=== PATIENT | female | born 1985 | race Caucasian/White ===

== ENCOUNTER 2017-02-28 12:52 | Emergency (ER) | payer OTHER, MEDICAID ==
[2017-02-28] MEDS ORDERED: DEXAMETHASONE SOD PHOS INJ 10 MG/1 ML VIAL IM ONE (14:08)
[2017-02-28] MEDS ORDERED: KETOROLAC TROMETHAMINE 60 MG/2 ML SDV IM ONE (14:08)
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
[2017-02-28 16:27] VITALS: BP 115/79
== END 2017-02-28 15:55 | disposition home or self-care (01) ==
LOC: ER 12:52
DX: S16.1XXA Strain of muscle, fascia and tendon at neck level, initial encounter (principal); M54.6 Pain in thoracic spine; M79.1 Myalgia; Z87.891 Personal history of nicotine dependence; Z85.41 Personal history of malignant neoplasm of cervix uteri; Z86.14 Personal history of Methicillin resistant Staphylococcus aureus infection; Z90.710 Acquired absence of both cervix and uterus; Z90.49 Acquired absence of other specified parts of digestive tract; Z88.0 Allergy status to penicillin; Z88.6 Allergy status to analgesic agent; V89.2XXA Person injured in unspecified motor-vehicle accident, traffic, initial encounter; Y92.481 Parking lot as the place of occurrence of the external cause
CPT/HCPCS: 99284; 96372; 72050; 72070; J1885; J1100

== ENCOUNTER 2017-06-23 10:46 | Emergency (ER) | payer MEDICAID ==
[2017-06-23 11:02] VITALS: BP 129/70
--- NOTE | 2017-06-23 22:19 | EKG REPORT ---
SEVERITY:- NORMAL ECG - SINUS RHYTHM : Confirmed by: Levy Major 23-Jun-2017 22:19:18
== END 2017-06-23 11:54 | disposition left against medical advice (07) ==
LOC: ER 10:46
DX: Z53.21 Procedure and treatment not carried out due to patient leaving prior to being seen by health care provider (principal); R07.9 Chest pain, unspecified
CPT/HCPCS: 93005; 93010

== ENCOUNTER → 2017-10-03 | Outpatient (CLI) | payer MEDICAID ==
--- NOTE | 2017-10-03 15:51 | RADIOLOGY REPORT (SQ) ---
EXAM DESCRIPTION: FOOT LEFT 2 VIEWS COMPLETED DATE/TIME: 10/03/2017 2:52 pm REASON FOR STUDY: PLANTAR FASCIAL FIBROMATOSIS M72.2 PLANTAR FASCIAL FIBROMATOSIS COMPARISON: 04/09/2011 NUMBER OF VIEWS: Three views. TECHNIQUE: AP, lateral and oblique without weight bearing radiographic images acquired of the left f oot. LIMITATIONS: None. FINDINGS: MINERALIZATION: Normal. BONES: No acute fracture or dislocation. No worrisome bone lesions. No significant osteophytes. JOINTS: No erosions. No gila-articular osteopenia. No chondrocalcinosis. SOFT TISSUES: No swelling. No calcifications. OTHER: No other significant finding. IMPRESSION: NEGATIVE STUDY OF THE LEFT FOOT. NO EXPLANATION FOR PAIN. TECHNICAL DOCUMENTATION: JOB ID: [id number] [employer]- All Rights Reserved Reading location - IP/workstation name: [email or web address]
== END ==
LOC: OD 14:36
PROVIDERS: ATTEND Family Medicine
DX: M72.2 Plantar fascial fibromatosis (principal)

== ENCOUNTER 2019-09-03 19:53 | Emergency (ER) | payer OTHER, MEDICAID ==
[2019-09-03] MEDS ORDERED: IBUPROFEN 800 MG TABLET PO ONE (20:02)
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
[2019-09-03 21:08] VITALS: BP 144/87
== END 2019-09-03 21:11 | disposition home or self-care (01) ==
LOC: ER 19:53
DX: S49.91XA Unspecified injury of right shoulder and upper arm, initial encounter (principal); M79.89 Other specified soft tissue disorders; V43.52XA Car driver injured in collision with other type car in traffic accident, initial encounter; Y92.481 Parking lot as the place of occurrence of the external cause; Z88.0 Allergy status to penicillin; Z88.6 Allergy status to analgesic agent; Z86.14 Personal history of Methicillin resistant Staphylococcus aureus infection
CPT/HCPCS: 99283

== ENCOUNTER 2019-09-04 14:58 | Emergency (ER) | payer OTHER, MEDICAID ==
[2019-09-04 15:41] VITALS: BP 146/100
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
== END 2019-09-04 15:41 | disposition home or self-care (01) ==
LOC: ER 14:58
DX: H11.30 Conjunctival hemorrhage, unspecified eye (principal); R51 Headache; M54.2 Cervicalgia; V87.7XXA Person injured in collision between other specified motor vehicles (traffic), initial encounter; Z88.0 Allergy status to penicillin; Z88.8 Allergy status to other drugs, medicaments and biological substances; Z79.899 Other long term (current) drug therapy
CPT/HCPCS: 99283

== ENCOUNTER → 2020-04-26 | Outpatient (CLI) | payer MEDICAID ==
--- NOTE | 2020-04-26 14:31 | RADIOLOGY REPORT (SQ) ---
EXAM DESCRIPTION: TOE LEFT IMAGES COMPLETED DATE/TIME: 04/26/2020 2:11 pm REASON FOR STUDY: (M79.672)PAIN IN LEFT FOOT M79.672 PAIN IN LEFT FOOT COMPARISON: None. NUMBER OF VIEWS: Three views. TECHNIQUE: AP, lateral, and oblique images acquired of the left foot LIMITATIONS: None. FINDINGS: MINERALIZATION: Normal. BONES: No acute fracture or dislocation. No worrisome bone lesions. JOINTS: No effusions. SOFT TISSUES: No soft tissue swelling. No foreign body. OTHER: No other significant finding. IMPRESSION: 1. No acute osseous findings. COMMENT: SITE OF TRAUMA/COMPLAINT MARKED/STAMP COMPLETED: NO. TECHNICAL DOCUMENTATION: JOB ID: [id number] 2010 [employer]- All Rights Reserved Reading location - IP/workstation name: [email or web address]
== END ==
LOC: RAD 13:53
PROVIDERS: ATTEND Nurse Practitioner Family
DX: M79.672 Pain in left foot (principal)